=== PATIENT | male | born 1990 | race Hispanic/Latino ===

== ENCOUNTER 2017-09-09 13:39 | Observation (INO) | payer SELFPAY ==
[2017-09-09] MEDS ORDERED: Proparacaine 0.5% Opth 15 ML BOT ONE (13:47)
[2017-09-09] MEDS ORDERED: Fluorescein Opthalmic Strip ONE (13:47)
[2017-09-09] MEDS ORDERED: Lidocaine 1% PF 5 ML VIAL ONE (13:52)
[2017-09-09] MEDS ORDERED: Glycopyrrolate 0.2 MG/ML 5 ML SYRINGE ONE (13:52)
[2017-09-09] MEDS ORDERED: Dexamethasone 20 MG/5 ML VIAL ONE (13:52)
[2017-09-09] MEDS ORDERED: Ketorolac Tromethamine 30 MG/ML VIAL ONE (13:52)
[2017-09-09] MEDS ORDERED: diphenhydrAMINE 50 MG/ML VIAL ONE (13:52)
[2017-09-09] MEDS ORDERED: PROPOFOL 200 MG/20 ML VIAL ONE (13:52)
--- NOTE | 2017-09-09 16:00 | CT ---
NONCONTRAST CT HEAD NONCONTRAST CT ORBITS: DATE: 09/09/17. HISTORY: Patient accidentally shot in left eye with a nail gun. Bleeding from left eye. FINDINGS: There is no evidence of an intraparenchymal extraaxial hemorrhage. Ventricular system is normal in s ize, shape, and position. There is no mass effect or midline. No acute infarction is seen. There is polypoid mucosal thickening in the left maxillary antrum and to a much lesser extent involvi ng the right maxillary antrum. There is opacification of a few ethmoid air cells bilaterally. Masto id air cells are clear. There is no evidence of a calvarial fracture. Images through the orbits demonstrate volume loss and deformity of the left globe with increased dens ity material within the globe which may be related to hemorrhage. A normal-appearing lens in he left eye is not visualized. No post septal inflammatory changes or hemorrhage is appreciated. There is no hematoma seen posterior to the globe. No metallic foreign body is seen on this exam. IMPRESSION: 1. Volume loss and deformity of the left globe likely related to patient's recent injury. In additi on, a normal-appearing lens of the left eye is not seen. 2. No metallic foreign body is seen within the left globe. 3. No acute intracranial abnormality is demonstrated. 4. Sinus disease. 5. The above findings were discussed with Dr. De La Garza in the emergency department on 09/09/17 at 1535 hours. CODE CR POS: [facility]
[2017-09-09] MEDS ORDERED: Adacel (T-DAP) 0.5 ML VIAL ONE (17:37)
--- NOTE | 2017-09-09 19:48 | HP ---
DATE OF ADMISSION: 09/09/2017 REQUESTING PHYSICIAN: Dr. De La Garza. ATTENDING SURGEON: Dr. Mayen. CONSULTATIONS: Ophthalmology, Dr. Edwards. 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 When he lifted his safety glasses to be able to see better, he fired the nail gun and then something struck him in his left eye. The patient was brought to the em ergency department, evaluated, examined and noted to have a large corneal defect to his left eye with the left subconjunctival hemorrhage and significant vision loss in that same eye. At which time, we were asked to evaluate the patient for admission and obtain ophthalmological consultations. ALLERGIES: None. CURRENT MEDICATIONS: None. PAST MEDICAL HISTORY: None. PAST SURGICAL HISTORY: None. SOCIAL HISTORY: The patient works as a drafter construction. Denies drug use. Occasional alcohol an d occasional tobacco use. FAMILY MEDICAL HISTORY: Hypertension, diabetes. REVIEW OF SYSTEMS: Ten-point review of systems is negative, unless otherwise stated. PHYSICAL EXAMINATION: VITAL SIGNS: Blood pressure 125/87, heart rate 94, respirations 17, oxygen saturation 97% on room ai r, temperature is 98.4. GENERAL: The patient is resting comfortably in an ER bed. He is awake, alert, and oriented. Glasgo w coma scale is 15. HEENT: Head is normocephalic, atraumatic. Eyes: Left eye shows again a large corneal defect with a subconjunctival hemorrhage and is markedly injected. Extraocular motion appears intact, though barbara ent has difficulty seeing finger and does have some light perception. The patient's right eye is alex ffected. Ears are atraumatic without discharge. Nose is atraumatic without discharge. Oropharynx i s clear. NECK: Nontender. Trachea is midline. No JVD. CHEST: Clear to auscultation with good inspiratory and expiratory effort. HEART: Regular rate and rhythm. ABDOMEN: Soft, flat, and nontender with active bowel sounds. EXTREMITIES: Neurovascularly intact x4. BACK: Atraumatic and nontender. LABORATORY DATA: There are no laboratory findings to be reviewed. CT of the head and orbits without contrast shows: 1. A volume loss and deformity of the left globe likely related to the patient's recent injury; in a ddition, a normal appearing lens of the left eye is not seeing. 2. No metallic foreign body seen within the left globe. 3. No acute intracranial abnormalities demonstrated. 4. Sinus disease. ASSESSMENT AND PLAN: 1. Status post left ocular injury. 2. Acute traumatic vision loss. 3. Pain secondary to acute trauma. Plan will be to admit the patient to the surgical floor. The patient was evaluated by Dr. Minaya in the emergency department. He recommended the patient go to the operating room for attempted surgica l repair of his ocular injury. The patient will remain n.p.o. We will start pain control, pulmonary toilet, gastritis, mechanical deep venous thrombosis prophylaxis. Evaluation, examination, laborato ry and radiographic findings will be discussed with Dr. Mayen after this dictation.
[2017-09-09] MEDS ORDERED: Fentanyl 250 MCG/5 ML VIAL ONE (20:14)
[2017-09-09] MEDS ORDERED: Midazolam HCl 2 mg/2 ml Vial ONE (20:14)
[2017-09-09] MEDS ORDERED: Vancomycin HCl 500 MG VIAL FS SCH (20:15)
[2017-09-09] MEDS ORDERED: DUOVISC I-OCULAR SCH (20:15)
[2017-09-09] MEDS ORDERED: Ondansetron HCl/PF 4 MG/2 ML Vial IVP PRN ×2 (22:51→23:44)
[2017-09-09] MEDS ORDERED: Promethazine HCl 25 MG/ML VIAL IM PRN (22:51)
[2017-09-09] MEDS ORDERED: Promethazine HCl 25 MG/ML VIAL SLOW IVP PRN (22:51)
[2017-09-09] MEDS ORDERED: Fentanyl 100 MCG/2 ML VIAL ONE (23:18)
[2017-09-09] MEDS ORDERED: Sodium Chloride 0.9% 1,000 ML IV SCH (23:44)
[2017-09-09] MEDS ORDERED: Dextrose 50% Abboject 50 ML SYRINGE SLOW IVP PRN (23:44)
[2017-09-09] MEDS ORDERED: traMADol HCl 50 MG TAB PO PRN ×2 (23:44)
[2017-09-09] MEDS ORDERED: Ondansetron ODT 4 MG TAB PO PRN (23:44)
[2017-09-09] MEDS ORDERED: hydrALAZINE 20 MG/ML VIAL SLOW IVP PRN (23:44)
[2017-09-09] MEDS ORDERED: Dextrose 5% in Water 1,000 ML IV PRN (23:44)
[2017-09-09] MEDS ORDERED: Morphine 4 MG/ML VIAL SLOW IVP PRN (23:44)
[2017-09-10 00:19] VITALS: BMI 25.7
[2017-09-10] MEDS ORDERED: Famotidine 20 MG TAB PO SCH (00:30)
[2017-09-10] MEDS: Acetaminophen 1,000 MG in Premix Bag 1 BAG IVPB SCH ×3 (00:38→12:35)
[2017-09-10] MEDS: Ketorolac Tromethamine 30 MG/ML VIAL IVP SCH ×3 (00:39→12:35)
[2017-09-10 06:02] LABS: Anion Gap 14 mmol/L (10-20); BUN (Urea Nitrogen) 15 mg/dL (8.9-20.6); Calc. Creatinine Clearance 128 mL/min (70-130); Calcium 9.6 mg/dL (7.8-10.44); Carbon Dioxide 24 mmol/L (22-29); Chloride 101 mmol/L (98-107); Estimated GFR-MDRD 90; Glucose 141 mg/dL (70-105); Potassium 4.3 mmol/L (3.5-5.1); Sodium 135 mmol/L (136-145)
[2017-09-10] MEDS: Famotidine 20 MG TAB PO SCH ×2 (08:07→20:21)
[2017-09-10] MEDS: Maxitrol 0.1% Opth Oint 3.5 GM TUBE L EYE SCH ×8 (11:24→23:32)
--- NOTE | 2017-09-11 02:02 | OP ---
DATE OF PROCEDURE: 09/09/2017 PREOPERATIVE DIAGNOSIS: Corneal laceration with loss of some ocular contents, left eye. NAME OF PROCEDURE: Repair of corneal laceration, left eye. ANESTHESIA: General endotracheal anesthesia. CLINICAL SUMMARY: The patient is a 27-year-old man who fired a nail gun, and an unknown object (presumably the nail) struck his left eye. MRI showed a partially collapsed globe and no orbital foreign body. On clinical exam, there was what appeared to be opaque lens material within the pupillary space. DESCRIPTION OF PROCEDURE: The patient was taken to the operating room and placed under adequate general endotracheal anesthesia, then the left eye prepped and draped for ocular surgery. A [employer] solid blade lid speculum was placed between the lids of the left eye and elevated and its outer portion elevated with folded 4 x 4's. A laceration extended across the cornea from approximately the 9:30 o'clock limbus to approximately the 3:30 o'clock limbus. There were small bits of iris material and vitreous exposed along the wound. Most of these small exposed remnants were removed. Beginning at each limbus and alternating back and forth multiple interrupted 10-0 nylon sutures were placed along the wound until the center was reached. A paracentesis was created at the 1 o'clock position and BSS irrigated into the eye. There was leakage from the lateral end where the wound was now seen to extend 2-3 mm past the limbus and 2 or 3 additional sutures placed here. Additional paracenteses were created with a 30 gauge needle to reduce flow back around the irrigating cannula/needle. At this point, the wound was well opposed, but multiple of the previously placed sutures were now somewhat loose. Additional sutures were placed along the wound, ultimately replacing most of the original sutures. A 0.05 mL of vancomycin was injected through the pars plana into the vitreous. The speculum was removed and Maxitrol ointment placed over the eye and underneath the lids and the lids patched closed with a firm pressure dressing and metal shield. The patient was then taken to recovery area in satisfactory condition and where he was further allowed to recover from his anesthesia, then to be taken to his room. RODRIGO
[2017-09-11] MEDS: Maxitrol 0.1% Opth Oint 3.5 GM TUBE L EYE SCH ×3 (06:26→10:37)
[2017-09-11] MEDS: Famotidine 20 MG TAB PO SCH (10:37)
[2017-09-11 12:01] VITALS: BP 135/91; TEMP 98
== END 2017-09-11 15:02 | disposition home or self-care (01) ==
LOC: EDBD 13:39 → ERS 13:39 → SURG A 19:54
PROVIDERS: ADMIT Surgery; ATTEND Surgery
PROC: 08Q9XZZ Repair Left Cornea, External Approach (ICD-10-PCS; principal; 2017-09-11)
DX: S05.22XA Ocular laceration and rupture with prolapse or loss of intraocular tissue, left eye, initial encounter (principal); G89.11 Acute pain due to trauma; W22.8XXA Striking against or struck by other objects, initial encounter; Y92.61 Building [any] under construction as the place of occurrence of the external cause; Y99.0 Civilian activity done for income or pay
CPT/HCPCS: 36415; 70450; 80048; 90471; 90715; 96374; 96375; 96376; G0378; J0131; J1100; J1200; J1885; J2001; J2250; J2704; J3010; J3370